=== PATIENT | male | born 1990 | race African-American/Black ===

== ENCOUNTER 2024-07-30 10:44 | Inpatient (IN) | payer SELFPAY ==
[~2024-07-30] VITALS: Ht 177.8 cm; Wt 77.1 kg
[2024-07-30 10:49] VITALS: O2SAT 99
[2024-07-30 11:21] LABS: BASOPHILS % 0.9 % (0.0-2.0); EOSINOPHILS % 1.6 % (0.0-5.0); HEMATOCRIT. 37.9 % (42.0-52.0); HEMOGLOBIN. 12.5 g/dL (14.0-18.0); LYMPHOCYTES % 40.7 % (20.0-50.0); MEAN CORPUSCULAR HEMOGLOBIN 30.1 pg (28.0-32.0); MEAN PLATELET VOLUME 6.7 fl (7.4-10.4); MONOCYTES % 9.1 % (2.0-8.0); NEUTROPHILS % 47.7 % (40.0-76.0); PLATELET 345 x1000/uL (130-400); RED BLOOD CELL COUNT 4.17 mill/uL (4.7-6.1); RED CELL DISTRIBUTION WIDTH 14.5 % (11.6-14.6); WHITE BLOOD COUNT 5.8 x1000/uL (4.5-11.0)
[2024-07-30 11:43] LABS: CHLORIDE 108 mEq/L (98-107); POTASSIUM 4.2 mEq/L (3.5-5.1); SODIUM 143 mEq/L (136-145)
[2024-07-30 11:44] LABS: CARBON DIOXIDE 26 mEq/L (21-32)
[2024-07-30 11:49] LABS: CREATININE 0.9 mg/dL (0.6-1.3); ETHANOL BLOOD < 10 mg/dL (<10); GLUCOSE 102 mg/dL (70-105); UREA NITROGEN BLOOD 17 mg/dL (9-23)
[2024-07-30 11:51] LABS: ACETAMINOPHEN < 2 ug/mL (10-30); AMMONIA < 17 uMol/L (<32)
[2024-07-30] MEDS ORDERED: CLONIDINE 0.1MG TABLET PO PRN (15:30)
[2024-07-30] MEDS ORDERED: LORAZEPAM 0.5MG TABLET PO PRN (15:30)
[2024-07-30] MEDS ORDERED: MORPHINE SULFATE 2 MG/ML INJ (NOT FOR IM USE) IV PRN (15:30)
[2024-07-30] MEDS ORDERED: HYDROCODONE/ACETAMINOPHEN 5/325MG TABLET PO PRN (15:30)
[2024-07-30] MEDS ORDERED: DOCUSATE SODIUM 100MG CAPSULE PO PRN (15:30)
[2024-07-30] MEDS ORDERED: MAGNESIUM/ALUMINUM HYDROXIDE/SIMETHICONE 30ML UDC PO PRN (15:30)
[2024-07-30] MEDS ORDERED: ACETAMINOPHEN 325MG TABLET PO PRN ×2 (15:30)
[2024-07-30] MEDS ORDERED: GUAIFENESIN 200MG/10ML SUGAR FREE UDC PO PRN (15:30)
[2024-07-30] MEDS ORDERED: ONDANSETRON HCL 4MG/2ML INJ IV PRN (15:30)
[2024-07-30] MEDS ORDERED: IPRATROPIUM/ALBUTEROL 0.5-3(2.5)MG/3ML NEB HHN PRN (15:30)
[2024-07-30] MEDS ORDERED: MORPHINE SULFATE 4 MG/ML INJ (FOR IV/IM USE) IV PRN (15:31)
[2024-07-30] MEDS ORDERED: NALOXONE HCL 0.4MG/ML VIAL IV PRN (15:45)
[2024-07-30 15:56] LABS: IRON 65 ug/dL (65-175)
[2024-07-30 15:59] LABS: TOTAL IRON BINDING CAPACITY 261 ug/dl (250-425)
[2024-07-30 17:35] VITALS: BP 125/86; PULSE 55; RESP 18; TEMP 36.7
[2024-07-30 20:00] VITALS: BP 133/95; PULSE 58; RESP 18; TEMP 36.5; O2SAT 95
[2024-07-31] VITALS: BP 124/73; PULSE 65; RESP 19; TEMP 36.3; O2SAT 98
[2024-07-31] MEDS: SODIUM CHLORIDE 0.9% 1,000 ML IV SCH (01:27)
[2024-07-31 03:42] LABS: BASOPHILS % 0.9 % (0.0-2.0); EOSINOPHILS % 2.1 % (0.0-5.0); HEMATOCRIT. 41.2 % (42.0-52.0); HEMOGLOBIN. 13.4 g/dL (14.0-18.0); LYMPHOCYTES % 48.6 % (20.0-50.0); MEAN CORPUSCULAR HEMOGLOBIN 29.7 pg (28.0-32.0); MEAN CORPUSCULAR HGB CONC 32.6 g/dL (31.0-37.0); MEAN CORPUSCULAR VOLUME 91.1 fL (80.0-94.0); NEUTROPHILS % 39.4 % (40.0-76.0); PLATELET 353 x1000/uL (130-400); RED BLOOD CELL COUNT 4.52 mill/uL (4.7-6.1); WHITE BLOOD COUNT 5.4 x1000/uL (4.5-11.0)
[2024-07-31 03:58] LABS: CHLORIDE 106 mEq/L (98-107); POTASSIUM 4.2 mEq/L (3.5-5.1); SODIUM 141 mEq/L (136-145)
[2024-07-31 03:59] LABS: CALCIUM 9.3 mg/dL (8.7-10.4); CARBON DIOXIDE 28 mEq/L (21-32)
[2024-07-31 04:00] VITALS: BP 120/80; PULSE 70; RESP 19; TEMP 36.4; O2SAT 100
[2024-07-31 04:02] LABS: CREATINE KINASE MB FRACTION 12.1 ng/mL (0.5-3.6)
[2024-07-31 04:04] LABS: CREATININE 0.9 mg/dL (0.6-1.3); GLUCOSE 103 mg/dL (70-105); TRIGLYCERIDE 214 mg/dL (0-150); UREA NITROGEN BLOOD 19 mg/dL (9-23)
[2024-07-31 04:05] LABS: LDL CHOLESTEROL 93 mg/dL (5-100)
[2024-07-31 04:06] LABS: CHOLESTEROL 173 mg/dL (<200); CREATINE KINASE 509 IU/L (46-171); HDL CHOLESTEROL 58 mg/dL (>55); T4 FREE 0.98 ng/dL (0.89-1.76); THYROID STIMULATING HORMONE 0.47 uIU/mL (0.55-4.78)
[2024-07-31 04:08] LABS: FOLIC ACID (FOLATE) SERUM 13.87 ng/mL (>5.38); VITAMIN B12 SERUM 210 pg/mL (211-911)
[2024-07-31 04:22] LABS: FERRITIN 128 ng/mL (22-322)
[2024-07-31 04:25] LABS: TROPONIN I HIGH SENSITIVITY < 4 ng/L (3.0-53)
[2024-07-31 08:00] VITALS: BP 111/68; PULSE 59; RESP 18; TEMP 36.7; O2SAT 99
[2024-07-31] MEDS: FOLIC ACID 1MG TABLET PO SCH (09:00)
[2024-07-31] MEDS: THIAMINE HCL 100MG TABLET PO SCH (09:00)
[2024-07-31 12:00] VITALS: BP 120/74; PULSE 66; RESP 19; TEMP 36.8; O2SAT 98
[2024-07-31 14:43] LABS: CLARITY URINE CLEAR (CLEAR); COLOR URINE YELLOW (YELLOW); GLUCOSE URINE NEGATIVE (NEGATIVE); KETONES URINE NEGATIVE (NEGATIVE); LEUKOCYTE ESTERASE URINE NEGATIVE (NEGATIVE); NITRITE URINE NEGATIVE (NEGATIVE); OCCULT BLOOD URINE NEGATIVE (NEGATIVE); PROTEIN URINE NEGATIVE (NEGATIVE); SPECIFIC GRAVITY URINE 1.021 (1.005-1.030)
[2024-07-31 15:01] LABS: *AMPHETAMINES SCREEN URINE PRESUMPTIVE POSITIVE (NEGATIVE); *BENZODIAZEPINES SCREEN URINE NEGATIVE (NEGATIVE)
[2024-07-31 15:02] LABS: *BARBITURATES SCREEN URINE NEGATIVE (NEGATIVE); *COCAINE SCREEN URINE NEGATIVE (NEGATIVE); CANNABINOID URINE SCREEN NEGATIVE (NEGATIVE); ECSTASY MDMA SCREEN URINE NEGATIVE (NEGATIVE); METHADONE URINE SCREEN NEGATIVE (NEGATIVE); OPIATES URINE SCREEN NEGATIVE (NEGATIVE); PHENCYCLIDINE URINE SCREEN PRESUMTIVE POSITIVE (NEGATIVE)
[2024-07-31 16:00] VITALS: BP 135/87; PULSE 68; RESP 18; TEMP 36.8; O2SAT 97
== END 2024-07-31 19:05 | disposition left against medical advice (07) | DRG 52 ==
LOC: ER 10:44 → 5WST 15:24 → EDBEDREQ 15:26 → ENRESERV 17:09
PROVIDERS: ADMIT Hospitalist; ATTEND Hospitalist
DX: G92.8 Other toxic encephalopathy (principal); D64.9 Anemia, unspecified; F19.10 Other psychoactive substance abuse, uncomplicated; F41.9 Anxiety disorder, unspecified
CPT/HCPCS: 36415; 71045; 80048; 80061; 80305; 80307; 80320; 80329; 81003; 82140; 82550; 82553; 82607; 82728; 82746; 83540; 83550; 83605; 84145; 84439; 84443; 84484; 85025; 93005; 97166; 99285; G0480